=== PATIENT | female | born 1945 | race Hispanic/Latino ===

== ENCOUNTER → 2024-12-03 | Outpatient (CLI) | payer MEDICARE ==
--- NOTE | 2024-12-03 16:11 | HMCSR ---
APPROVED REPORT EXAM: Two-dimensional and M-mode echocardiogram with Doppler and color Doppler. INDICATION ICD: Hypertensive Chronic Kidney Disease Stage 1 through 4 I12.9 R94.31 2D Dimensions RVDd3.2 cmLVEF(%)42.0 (>50%)LVED Vol(simp.)93.3 mL IVSd0.6 (0.7-1.1cm)FS(%)21 %LVES Vol(simp.)30.1 mL LVDd4.4 (3.8-5.6cm)LA (2D)4.0 (1.6-4.0cm)LVEF(%, simp.)68 % PWd0.9 (0.7-1.1cm)Ao Root(2D)2.9 (2.0-3.7cm)LA ESV INDEX (4CH)30.10 mL/m2 IVSs1.1 cmLVOT diam2.0 (1.8-2.4cm)LA ESV INDEX (2CH)27.30 mL/m2 LVDs3.5 (2.5-4.0cm)LA ESV INDEX (BP)28.30 mL/m2 PWs1.1 cm M-Mode Dimensions EPSS1.5 cm LA (MM)4.4 (1.6-4.0cm) Ao Root(MM)2.4 (2.0-3.7cm) Aortic Valve AoV VTI0.4 mAo Mean GR5.0 mmHgLVOT VTI0.37 m FOREIGN (VMAX)3.4 cm2AVA (VTI) 3.4 cm2 Mitral Valve MV E Vmax63.5 cm/sDECEL Uick859 ms MV A Vmax67.9 cm/sP 1/2 T72 ms E/A ratio0.9MVA (PHT)3.0 cm2 TDI E/E' Medial9.8E/E' Lateral6.0 Medial E' Peak V6.50 cm/sLateral E' Peak V10.60 cm/s Tricuspid Valve TR Vmax2.4 m/s TR Peak GR22.5 mmHg Left Ventricle The left ventricle is normal size. There is normal left ventricular wall thickness. LVEF is 65-70%. T he left ventricular diastolic function is normal. Right Ventricle The right ventricle is normal size. The right ventricular systolic function is normal. Atria The left atrium size is normal. The right atrium size is normal. Aortic Valve The aortic valve is normal in structure. No aortic regurgitation is present. There is no aortic valvu lar stenosis. Mitral Valve The mitral valve is normal in structure. Mitral regurgitation is mild. There is no mitral valve steno sis. Tricuspid Valve The tricuspid valve is normal in structure. There is no tricuspid valve regurgitation noted. Pulmonic Valve The pulmonary valve is normal in structure. There is no pulmonic valvular regurgitation. Great Vessels The aortic root is normal in size. The IVC is normal in size and collapses >50% with inspiration. Pericardium There is no pericardial effusion. Conclusion LVEF is 65-70%. Mitral regurgitation is mild.
== END | disposition home or self-care (01) ==
LOC: RAH 12:38
PROVIDERS: ATTEND Internal Medicine
DX: I34.0 Nonrheumatic mitral (valve) insufficiency (principal); I12.9 Hypertensive chronic kidney disease with stage 1 through stage 4 chronic kidney disease, or unspecified chronic kidney disease; N18.9 Chronic kidney disease, unspecified; R94.31 Abnormal electrocardiogram [ECG] [EKG]
CPT/HCPCS: 93306

== ENCOUNTER → 2025-03-01 | Outpatient (CLI) | payer MEDICARE ==
--- NOTE | 2025-03-01 14:16 | HMCIMG ---
BONE DENSITOMETRY: HISTORY: Age-related osteoporosis without current pathological fracture Comparison: none FINDINGS: BMD measured at AP spine L1-L4 is 0.725 g/cm2 with a T-score of -2.9 This patient is considered osteoporotic according to WHO criteria. Fracture risk is high. BMD measured at Left Femoral Neck is 0.622 g/cm2 with a T-score of -2.1 Bone density is between 10 and 25% below young normal. This patient is considered osteopenic. Fracture risk is moderate. BMD measured at Left Femoral Total is 0.844 g/cm2 with a T-score of -0.9 Bone density is up to 10% below young normal. This patient is considered normal according to WHO criteria. Fracture risk is low. IMPRESSION: Osteoporosis. High risk for atraumatic fractures. Treatment and follow-up recommended.
== END | disposition home or self-care (01) ==
LOC: RAH 13:05
PROVIDERS: ATTEND Internal Medicine
DX: M81.0 Age-related osteoporosis without current pathological fracture (principal); M85.852 Other specified disorders of bone density and structure, left thigh
CPT/HCPCS: 77080